=== PATIENT | female | born 1985 | race Caucasian/White ===

== ENCOUNTER 2020-02-28 18:40 | Emergency (ER) | payer MEDICAID ==
[~2020-02-28] VITALS: Ht 162.6 cm; Wt 70.0 kg
[2020-02-28] MEDS ORDERED: morphine 4 MG/ML inj SYRINge IM ONE (19:45)
[2020-02-28] MEDS ORDERED: ondansetron/PF 4mg/2ml inj IM ONE (19:45)
[2020-02-28] MEDS ORDERED: TRAM50TA2 PO (20:05)
== END 2020-02-28 20:10 | disposition home or self-care (01) ==
LOC: ER 18:41
DX: K13.79 Other lesions of oral mucosa (principal); Z79.899 Other long term (current) drug therapy
CPT/HCPCS: 96372; 99284; J2270; J2405